=== PATIENT | female | born 1995 | race Caucasian/White ===

== ENCOUNTER → 2019-01-28 | Outpatient (CLI) | payer BC ==
[~2019-01-28] MED LIST: IOHEXOL 180 MG/ML 10 ML VIAL. INT UTERIN ONE
--- NOTE | 2019-01-28 10:55 | KCIC ---
Hysterosalpingogram HISTORY: Infertility COMPARISON: None TECHNIQUE: Patient was informed of the risks to include pain, infection, bleeding, allergic reaction. All questions were answered. Patient signed a written consent form for hysterosalpingogram. Patient was placed in a supine position on the fluoroscopy table. External skin surface was cleansed with Betadine solution. Speculum was inserted. Cervix was cleansed with Betadine solution. HSG catheter was inserted and secured with balloon inflation. Contrast was injected during fluoroscopic visualization, 16 cc of Omnipaque 180. The balloon was deflated and catheter removed. Speculum was removed. There were no immediate complications. Patient was advised to inform her doctor if any developing symptoms of fever, chills, progressive bleeding. FINDINGS: No focal filling defect is identified of the uterus. The left fallopian tube is patent. There is some visualization of the nondilated right fallopian tube which appears to course more superiorly although more difficult to define site of termination, in part due to more bowel gas and stool in the right pelvis. There is believed to be a degree of residual of contrast from the right fallopian tube although not as significant as the left. Fluoroscopy time: 95 seconds, 15 images. IMPRESSION: 1. Left fallopian tube is definitively patent. Nondilated right fallopian tube is at least segmentally seen although difficult to visualize as courses more superiorly to the right pelvic region, questionably patent although difficult to evaluate given the presence of gas and stool. Electronically signed by: Duy Nugent MD (01/28/2019 10:52 AM) [id number]
== END | disposition home or self-care (01) ==
LOC: KCIC 08:29
PROVIDERS: ATTEND Obstetrics & Gynecology
DX: N97.0 Female infertility associated with anovulation (principal)
CPT/HCPCS: 74400; Q9965